=== PATIENT | female | born 1965 | race Caucasian/White ===

== ENCOUNTER → 2017-12-10 06:51 | Outpatient (CLI) | payer OTHER, SELFPAY ==
--- NOTE | 2017-12-10 06:59 | CT_ITS ---
STUDY: CT MAXILLOFACIAL SINUSES REASON FOR EXAM: Female, 52 years old. RADIATION DOSAGE (If Supplied By Facility): CTDIvol = ( 33.06 ) mGy, DLP = ( 759.47 ) mGycm TECHNIQUE: The patient was scanned in a multi detector CT scanner. High resolution axial imaging was performed without the administration of intravenous contrast material. Sagittal and coronal images were reconstructed. Individualized dose optimization techniques were used for this CT. COMPARISON: None. FINDINGS: : NASAL SEPTUM: Slightly bowed to the right CRIBRIFORM PLATE AND BATSHEVA PETR: The fovea ethmoidalis, lateral lamella and lamina cribrosa are normal. The anterior ethmoidal notch is normal with no supraorbital pneumatization. The olfactory fossa is symmetric with a Keros type II. No skull base dehiscence LAMINA PAPYRACEA: No remote orbital fracture and no orbital prolapse into the ethmoidal sinus . BONY ANDREWS: No dehiscence, demineralization or thickness TURBINATES: Normal thickness and no paradoxical orientation. No martell bullosa . No turbinectomy OSTIOMEATAL UNITS: Patent with no ethmoidectomy, maxillary antrostomy, uncinectomy or turbinoplasty SPHENOETHMOIDAL RECESS: Patent FRONTAL SINUSES: Well developed and pneumatized with no abnormal soft tissue attenuations in them ETHMOID AIR CELLS: Aggar Nasi air cells are noted. No Jadiel air cells. Both the anterior and posterior ethmoidal air cells are clear of abnormal soft tissue attenuations MAXILLARY SINUSES: Normal with no arrested pneumatization or hyperpneumatization and no abnormal soft tissue attenuations SPHENOID SINUSES: Normal with conchal, presellar or sellar type pneumatization. No dehiscence into carotid canal and no optic nerve dehiscence within the sphenoid sinus. No Onodi air cells ORBITS: Negative SKULL BASE/CRANIOVERTEBRAL JUNCTION/UPPER CERVICAL SPINE.: Normal IMPRESSION: Negative examination with no maxillo-infundibular, nasofrontal, ostiomeatal unit or sphenoethmoidal pattern of obstructive disease. There is also no evidence of sinonasal polyposis. Mild bowing of the nasal septum to the right Electronically Signed: Jaskaran Rowley, at 7:57 EDT Tel , Service support , CT/Sinus/Facial Bone
== END ==
PROVIDERS: Family Provider Internal Medicine; PCP Internal Medicine; Visit Provider Otolaryngology
DX: J32.9 Chronic sinusitis, unspecified (principal)
CPT/HCPCS: 70486

== ENCOUNTER 2020-11-21 15:22 | Outpatient (RCR) | payer OTHER, SELFPAY ==
[2015-06-19 14:20] VITALS: BMI 27.4
== END 2021-01-14 23:59 ==
LOC: IMMUN 15:22
PROVIDERS: PCP Internal Medicine; Referring Provider Family Medicine; Visit Provider Family Medicine
DX: Z23 Encounter for immunization (principal)
CPT/HCPCS: 0001A; 0002A; 91300